=== PATIENT | female | born 1990 | race Caucasian/White ===

== ENCOUNTER 2016-11-02 00:15 | Emergency (ER) | payer MEDICAID, OTHER ==
[~2016-11-02] VITALS: Ht 154.9 cm; Wt 51.0 kg
[2016-11-02 00:20] VITALS: Ht 154.9 cm; Wt 51.0 kg
--- NOTE | 2016-11-02 00:56 | ERD ---
ER Documentation Chief Complaint Date/Time DATE: 11/02/16 TIME: 00:49 Chief Complaint sp ground level fall, left ankle pain HPI This is a 26-year-old female who presents to the emergency department today complaining of bilateral knee abrasions and left ankle pain after tripping and falling on the sidewalk in the neighborhood in front of the hospital earlier this evening with her friend. 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 ROS All systems reviewed and are negative except as per history of present illness. Allergies Allergies: Coded Allergies: Sulfa (Sulfonamide Antibiotics) (Verified Allergy, Unknown, 11/02/16) PMhx/Soc Medical and Surgical Hx: pt denies Surgical Hx History of Surgery: No Anesthesia Reaction: No Hx Neurological Disorder: No Hx Respiratory Disorders: No Hx Cardiac Disorders: No Hx Psychiatric Problems: No Hx Miscellaneous Medical Probl: Yes (DEVELOPMENTAL DELAYS) Hx Alcohol Use: No Hx Substance Use: No Hx Tobacco Use: No Smoking Status: Never smoker Physical Exam Vitals Vital Signs Date Time Temp Pulse Resp B/P Pulse Ox O2 Delivery O2 Flow Rate FiO2 11/02/16 00:20 97.6 93 20 102/67 100 Physical Exam Const: No acute distress Head: Atraumatic Eyes: Normal Conjunctiva ENT: Normal External Ears, Nose and Mouth. Neck: Full range of motion..~ No meningismus. Resp: Clear to auscultation bilaterally Cardio: Regular rate and rhythm, no murmurs Skin: Abrasions bilateral knees. MSK: Left ankle with no deformity. Very mild effusion over lateral malleolus. Mild tenderness palpation. Nontender foot. Full active range of motion ankle. pulses 2+. Distal neurovascularly intact. Neur: Awake and alert Psych: Normal Mood and Affect Procedures/MDM This is a 26-year-old female who presents to the emergency department today complaining of abrasions on both of her knees as well as some left ankle pain after tripping and falling on the sidewalk in front of the hospital in the local neighborhood. Patient has a history of myotonic muscular dystrophy and I did offer to obtain images for the patient however she has declined at this time. I do have low suspicion that there is an acute fracture dislocation. Patient did have abrasions on both of his knees and therefore the wounds were dressed here in the emergency department. Low suspicion for cellulitis, deep space infection, septic joint or gout. I did also give the patient an Rudy wrap for her left ankle. She declined crutches. Patient declined pain medication here in the emergency department. Patient is afebrile and otherwise well- appearing. She was not using her braces as she "could not find them. I have encouraged patient to use her braces for her legs as prescribed. Patient indicated she did not need Tylenol or Motrin for home. She declined triple antibiotic ointment stating that had sulfa in it and she is not allowed to take that. Patient indicated that she does have medication at home for any sort of wounds. At this time the patient is stable for discharge and outpatient management. Patient should follow up with their PCP in the next 1-2 days. They may return to the emergency department sooner for any persistent or worsening of symptoms. Patient understood and agreed with the plan. Departure Diagnosis: Primary Impression: Fall Encounter type: initial encounter Qualified Code: W19.XXXA - Fall, initial encounter Additional Impression: Abrasion Condition: Fair Patient Instructions: Treating Ankle Sprains, Abrasion, Fall, Mechanical Referrals: your PCP Additional Instructions: Call your primary care doctor TOMORROW for an appointment during the next 1-2 days.See the doctor sooner or return here if your condition worsens before your appointment time. Keep wounds clean and dry Take Tylenol or Motrin for any pain Use Rudy wrap and ice and elevate your ankle to help decrease swelling Wear your leg braces as prescribed DON ESTEVES PA-C Nov 02, 2016 00:55
== END 2016-11-02 01:07 | disposition home or self-care (01) ==
LOC: FTE 00:15
DX: S80.211A Abrasion, right knee, initial encounter (principal); S80.212A Abrasion, left knee, initial encounter; W10.1XXA Fall (on)(from) sidewalk curb, initial encounter; Y92.89 Other specified places as the place of occurrence of the external cause
CPT/HCPCS: 99282